=== PATIENT | male | born 1985 | race Caucasian/White ===

== ENCOUNTER 2021-04-30 02:17 | Emergency (ER) | payer SELFPAY ==
[2021-04-30 02:24] VITALS: BP 116/82
[2021-04-30] MEDS ORDERED: FAMOTIDINE 20 MG TAB PO ONE (03:02)
[2021-04-30] MEDS ORDERED: ONDANSETRON 4 MG ODT TAB PO ONE (03:02)
[2021-04-30] MEDS ORDERED: predniSONE 20 MG TAB PO ONE (03:02)
--- NOTE | 2021-04-30 06:13 | Emergency Department Report ---
ED General Adult HPI - General Chief complaint: Nosebleed Stated complaint: NOSE BLEED Source: patient Mode of arrival: Ambulatory Limitations: No Limitations - History of Present Illness Initial comments: Patient is a 35-year-old -[place]ag[place] male with no past medical history presents to the ED with complaint of acute onset persistent intermittent nosebleeds, nasal congestion with frontal sinus pressure, intermittent nausea, generalized weakness and fatigue for the last 2 days. Patient states that the last time he had nosebleed was 2 hours prior to arrival in the ED and that it resolved on its own. Patient denies sneezing, cough, traumatic injury, headache, dizziness, syncope, chest pain, shortness of breath, sore throat, fever and chills, abdominal pain or headache. MD Complaint: Nosebleeds; nasal congestion; nausea and generalized weakness and fatigue -: Sudden, days(s) (2) Location: face Radiation: non-radiation Severity scale (0 -10): 2 Quality: dull Consistency: intermittent Improves with: none Worsens with: movement Associated Symptoms: denies other symptoms, malaise, nausea/vomiting, weakness. denies: confusion, chest pain, cough, diaphoresis, fever/chills, headaches, loss of appetite, rash, seizure, shortness of breath, syncope Treatments Prior to Arrival: none - Related Data Allergies Allergy/AdvReac Type Severity Reaction Status Date / Time No Known Allergies Allergy Verified 04/30/21 02:24 ED Review of Systems ROS: Stated complaint: NOSE BLEED Other details as noted in HPI Constitutional: malaise, weakness. denies: chills, fever Eyes: denies: eye pain, eye discharge, vision change ENT: epistaxis, congestion. denies: ear pain, throat pain Respiratory: denies: cough, shortness of breath, wheezing Cardiovascular: denies: chest pain, palpitations Endocrine: no symptoms reported Gastrointestinal: nausea. denies: abdominal pain, vomiting, diarrhea Genitourinary: denies: urgency, dysuria Musculoskeletal: denies: back pain, joint swelling, arthralgia Skin: denies: rash, lesions Neurological: denies: headache, weakness, paresthesias Psychiatric: denies: anxiety, depression Hematological/Lymphatic: denies: easy bleeding, easy bruising ED Past Medical Hx - Past Medical History Previous Medical History?: No - Surgical History Past Surgical History?: No ED Physical Exam - General Limitations: No Limitations General appearance: alert, in no apparent distress - Head Head exam: Present: atraumatic, normocephalic, normal inspection - Eye Eye exam: Present: normal appearance, PERRL, EOMI Pupils: Present: normal accommodation - ENT ENT exam: Present: normal orophraynx, mucous membranes moist, TM's normal bilaterally, normal external ear exam, other (Grossly congested nasal passages with hypertrophy of bilateral turbinates; no active nosebleed) - Neck Neck exam: Present: normal inspection, full ROM - Respiratory Respiratory exam: Present: normal lung sounds bilaterally. Absent: respiratory distress, wheezes, rhonchi, chest wall tenderness, accessory muscle use, decreased breath sounds, prolonged expiratory - Cardiovascular Cardiovascular Exam: Present: regular rate, normal rhythm, normal heart sounds. Absent: systolic murmur, diastolic murmur, rubs, gallop - GI/Abdominal GI/Abdominal exam: Present: soft, normal bowel sounds. Absent: tenderness, guarding, rebound, hyperactive bowel sounds, hypoactive bowel sounds, organomegaly, mass - Extremities Exam Extremities exam: Present: normal inspection, full ROM, normal capillary refill - Back Exam Back exam: Present: normal inspection, full ROM. Absent: tenderness, CVA tenderness (R), CVA tenderness (L), muscle spasm, paraspinal tenderness, vertebral tenderness - Neurological Exam Neurological exam: Present: alert, oriented X3, CN II-XII intact, normal gait, reflexes normal - Psychiatric Psychiatric exam: Present: normal affect, normal mood - Skin Skin exam: Present: warm, dry, intact, normal color. Absent: rash ED Course Vital Signs 04/30/21 02:20 Temperature 98.4 F Pulse Rate 86 Respiratory 18 Rate Blood Pressure 116/82 [Left] O2 Sat by Pulse 99 Oximetry ED Medical Decision Making - Medical Decision Making This is a 35-year-old -[place]ag[place] male with no past medical history presents to the ED with complaint of acute onset persistent intermittent nosebleeds, nasal congestion with frontal sinus pressure, intermittent nausea, generalized weakness and fatigue for the last 2 days. Patient states that the last time he had nosebleed was 2 hours prior to arrival in the ED and that it resolved on its own. In the ED, patient is alert and oriented x3 and is not in any distress. Patient eloped from the ED prior to the onset of treatment. Patient did not sign any paperwork for AMA but left. - Differential Diagnosis URI; rhinitis; viral syndrome; epistaxis; dehydration; Critical care attestation.: If time is entered above; I have spent that time in minutes in the direct care of this critically ill patient, excluding procedure time. ED Disposition Clinical Impression: Acute allergic rhinitis, Right-sided nosebleed, Acute viral syndrome Disposition: 07 LEFT AWOL/ELOPED Is pt being admited?: No Condition: Undetermined Referrals: PRIMARY CARE, [Primary Care Provider] - 3-5 Days Time of Disposition: 04:20 Print Language: WOLOF
== END 2021-04-30 06:16 | disposition left against medical advice (07) ==
LOC: ED 02:17
DX: J30.9 Allergic rhinitis, unspecified (principal); R04.0 Epistaxis; B34.9 Viral infection, unspecified
CPT/HCPCS: 99281; J7512; J3490; Q0162